=== PATIENT | female | born 1955 | race Caucasian/White ===

== ENCOUNTER 2021-12-28 11:56 | Emergency (ER) | payer OTHER ==
[~2021-12-28] VITALS: Ht 167.6 cm; Wt 72.6 kg
--- NOTE | 2021-12-28 12:03 | NUR ---
Patient to ER bed 08 to gown for evaluation. Side rails up.
[2021-12-28 12:04] VITALS: BP_SYST 152
--- NOTE | 2021-12-28 12:08 | NUR ---
PT COMES TO ER WITH C/O EFT LEG NUMBNESS FOR 4 MONTHS, GETTING WORST IN THE LAST 3 DAYS. DENIES PAIN, BUT IS NOT WALKING STEADILY ANYMORE. NEEDS ASSISTANCE TO AVOID FALLING. DTR AT BEDSIDE, REPORTS THAT SHE HAS TO HOLD HER TO HELP HER WALK. DENIES ANY ACUTE FALL OR INJURY. OTHERWISE, NO OTHER COMPLAINTS. RESP EVEN AND UNLABORED, ON RA @99%.
--- NOTE | 2021-12-28 12:14 | NUR ---
MRI PAPERWORK GIVEN TO DTR TO FILL OUT.
[2021-12-28 12:51] LABS: CALCIUM 8.6 mg/dL (8.4-11.0); CREATININE 0.6 mg/dL (0.55-1.30); POTASSIUM 3.9 mmol/L (3.5-5.1)
[2021-12-28 13:02] LABS: ALBUMIN 3.5 g/dL (3.4-4.8); TOTAL BILIRUBIN 0.2 mg/dL (0.0-1.0)
--- NOTE | 2021-12-28 14:18 | NUR ---
PT CONTINUES TO BE IN MRI.
--- NOTE | 2021-12-28 14:32 | NUR ---
PT BACK FROM MRI, NO COMPLAINTS. VSS.
--- NOTE | 2021-12-28 16:01 | NUR ---
PT UP IN BED, IN NO APPARENT DISTRESS. PT ON PHONE, UPDATE PROVIDED, WAITING FOR FINAL RESULTS.
--- NOTE | 2021-12-28 16:24 | NUR ---
Patient to ER bed H1 to gown for evaluation. Side rails up.
--- NOTE | 2021-12-28 16:26 | NUR ---
SON AT BEDSIDE, CONVERSING WITH DR MICHEL TO DISCUSS DISCHARGE PLAN.
--- NOTE | 2021-12-28 16:45 | NUR ---
RADIOLOGY CD GIVEN TO PT
[2021-12-28 16:46] VITALS: BP_SYST 148
--- NOTE | 2021-12-28 16:46 | NUR ---
Patient given written and verbal discharge instructions and verbalizes understanding. ER MD discussed with patient the results and treatment provided. Patient in stable condition. ID arm band removed. NO Rx given. Patient educated on pain management and to follow up with PMD. Pain Scale 0/10. Opportunity for questions provided and answered. Medication side effect fact sheet provided.
== END 2021-12-28 16:46 | disposition home or self-care (01) ==
LOC: SED 11:56
DX: R53.1 Weakness (principal); R29.6 Repeated falls
CPT/HCPCS: 36415; 72148; 73721; 80053; 83735; 99284

== ENCOUNTER 2022-01-01 10:52 | Emergency (ER) | payer MEDICAID, OTHER ==
[~2022-01-01] VITALS: Ht 160 cm; Wt 66.7 kg
[2022-01-01 11:08] VITALS: BP_SYST 163
[2022-01-01] MEDS ORDERED: GADOTERATE MEGLUMINE 7.5 MMOL/15 ML VIAL IV ONE (11:42)
[2022-01-01 11:48] LABS: BASOPHILS % (AUTO) 0.8 % (0.0-2.0); EOSINOPHILS # (AUTO) 0.1 K/uL (0.0-0.4); HEMATOCRIT 37.2 % (36-48); HEMOGLOBIN 12.6 g/dL (12.0-16.0); LYMPHOCYTES # (AUTO) 1.7 K/uL (1.0-5.5); LYMPHOCYTES % (AUTO) 26.3 % (20.5-51.5); MEAN CORPUSCULAR HEMOGLOBIN 30 pg (27-31); MEAN CORPUSCULAR HGB CONC 34 % (32-36); MEAN CORPUSCULAR VOLUME 90 fL (79.0-98.0); MONOCYTES # (AUTO) 0.5 K/uL (0.0-1.0); NEUTROPHILS # (AUTO) 4.2 K/uL (1.8-7.7); NEUTROPHILS % (AUTO) 63.9 % (40.0-70.0); PLATELET COUNT (AUTO) 270 K/uL (130-430); RED BLOOD CELL COUNT(AUTO) 4.16 MIL/uL (4.2-6.2); RED CELL DISTRIBUTION WIDTH 13.8 % (9.0-15.0); WHITE BLOOD COUNT (AUTO) 6.6 K/uL (4.8-10.8)
[2022-01-01 12:27] LABS: CALCIUM 8.3 mg/dL (8.4-11.0); CREATININE 0.63 mg/dL (0.55-1.30); POTASSIUM 4.5 mmol/L (3.5-5.1)
[2022-01-01 12:40] LABS: ALBUMIN 3.3 g/dL (3.4-4.8); TOTAL BILIRUBIN 0.1 mg/dL (0.0-1.0)
[2022-01-01 16:14] VITALS: BP_SYST 122
== END 2022-01-01 16:14 | disposition home or self-care (01) ==
LOC: SED 10:52
DX: R53.1 Weakness (principal)
CPT/HCPCS: 36415; 70544; 70547; 70553; 73560; 80053; 85025; 99285; A9575